=== PATIENT | male | born 1970 | race Caucasian/White ===

== ENCOUNTER 2017-03-11 15:51 | Outpatient (CLI) ==
[2017-03-11 16:47] LABS: BASOPHILS % (AUTO) 0.3 % (0.0-3.0); EOSINOPHILS # (AUTO) 0.1 K/ul (0.0-0.7); EOSINOPHILS % (AUTO) 1.2 % (0.0-7.0); HEMATOCRIT 45.9 % (42.0-52.0); HEMOGLOBIN 16.1 g/dl (14.0-18.0); IMMATURE GRANULOCYTE % (AUTO) 0.3 % (0.0-5.0); LYMPHOCYTES # (AUTO) 1.1 K/uL (0.60-3.4); LYMPHOCYTES % (AUTO) 12.2 (10.0-50.0); MEAN CORPUSCULAR HEMOGLOBIN 32.1 pg (27.0-31.0); MEAN CORPUSCULAR HGB CONC 35.1 (31.8-35.4); MEAN CORPUSCULAR VOLUME 91.4 fl (80.0-94.0); MONOCYTES # (AUTO) 0.6 K/uL (0.4-2.0); MONOCYTES % (AUTO) 6.7 (0-10); NEUTROPHILS # (AUTO) 6.8 K/ul (2.0-6.9); NEUTROPHILS % (AUTO) 79.3; PLATELET COUNT 201 10^3/uL (140-440); RED BLOOD COUNT 5.02 10^6/ul (4.70-6.10); WHITE BLOOD COUNT 8.61 K/ul (4.2-10.2)
[2017-03-11 16:55] LABS: ADD URINE MICROSCOPIC NO; BILIRUBIN,URINE Negative (NEGATIVE); KETONES,URINE Negative (NEGATIVE); LEUKOCYTE ESTERASE ,URINE Negative (NEGATIVE); NITRITE,URINE Negative (NEGATIVE); PH,URINE 5.5 (5-9); PROTEIN,URINE Negative (NEGATIVE); URINE, BLOOD Negative (NEGATIVE)
[2017-03-11 17:03] LABS: ALBUMIN 4.5 g/dL (3.4-5.0); ALBUMIN/GLOBULIN RATIO 1.45; ANION GAP 13.8; BILIRUBIN,TOTAL 1.85 mg/dL (0.00-1.20); BUN/CREATININE RATIO 18.34; CALCIUM 9.4 mg/dL (8.2-10.2); CHOL/HDL RATIO 3.5 (4.5-6.4); CREATININE 1.09 mg/dL (0.60-1.10); POTASSIUM 3.8 mmol/L (3.5-5.1); TOTAL PROTEIN 7.6 g/dL (6.4-8.2)
== END 2017-03-11 15:52 | disposition home or self-care (01) ==
LOC: LAB 15:51
PROVIDERS: ATTEND General Practice
DX: I10 Essential (primary) hypertension (principal); K64.5 Perianal venous thrombosis; Z12.5 Encounter for screening for malignant neoplasm of prostate; Z68.28 Body mass index [BMI] 28.0-28.9, adult; Z79.899 Other long term (current) drug therapy
CPT/HCPCS: 36415; 80053; 80061; 81001; 85025

== ENCOUNTER 2017-09-05 16:12 | Outpatient (CLI) ==
[2017-09-05 16:46] LABS: FLU INTERNAL QC INTERNAL QC VALID; RAPID FLU A NEGATIVE (NEGATIVE); RAPID FLU B NEGATIVE (NEGATIVE)
== END 2017-09-05 16:13 | disposition home or self-care (01) ==
LOC: LAB 16:12
PROVIDERS: ATTEND Emergency Medicine
DX: R68.89 Other general symptoms and signs (principal)
CPT/HCPCS: 87804